=== PATIENT | female | born 1975 | race Caucasian/White ===

== ENCOUNTER 2023-06-12 12:42 | Outpatient (CLI) | payer OTHER | END 2023-06-12 12:43 | disposition home or self-care (01) | LOC: SCSRAD 12:42 | PROVIDERS: ATTEND Family Medicine Sports Medicine | DX: M25.552 Pain in left hip (principal); R19.5 Other fecal abnormalities; M89.38 Hypertrophy of bone, other site; R93.5 Abnormal findings on diagnostic imaging of other abdominal regions, including retroperitoneum | CPT/HCPCS: 72100; 72202 ==